=== PATIENT | male | born 1965 | race Caucasian/White ===

== ENCOUNTER 2017-11-28 16:37 | Emergency (ER) | payer MEDICAID ==
[~2017-11-28] VITALS: Ht 180.3 cm; Wt 88.5 kg
[2017-11-28 17:00] VITALS: Ht 180.3 cm; Wt 88.5 kg
[2017-11-28 18:59] VITALS: BP 149/85
== END 2017-11-28 19:21 | disposition home or self-care (01) ==
LOC: ED 16:37
DX: S91.312A Laceration without foreign body, left foot, initial encounter (principal); I10 Essential (primary) hypertension; W23.1XXA Caught, crushed, jammed, or pinched between stationary objects, initial encounter; Y93.89 Activity, other specified; Y92.89 Other specified places as the place of occurrence of the external cause; Y99.8 Other external cause status
CPT/HCPCS: 90715; J2001; Q0092

== ENCOUNTER 2017-12-09 11:08 | Emergency (ER) | payer MEDICAID ==
[~2017-12-09] VITALS: Ht 172.7 cm; Wt 82.1 kg
[2017-12-09 11:27] VITALS: BP 146/79; Ht 172.7 cm; Wt 82.1 kg
== END 2017-12-09 11:56 | disposition home or self-care (01) ==
LOC: ED 11:08
DX: S97.82XD Crushing injury of left foot, subsequent encounter (principal); F17.210 Nicotine dependence, cigarettes, uncomplicated; Z71.6 Tobacco abuse counseling; X58.XXXD Exposure to other specified factors, subsequent encounter
CPT/HCPCS: 99406